=== PATIENT | female | born 1985 ===

== ENCOUNTER 2021-09-01 12:21 | Outpatient (CLI) | payer OTHER | END 2021-09-01 12:33 | disposition home or self-care (01) | LOC: SONOGRAMA 12:21 | PROVIDERS: ATTEND Obstetrics & Gynecology | DX: R18.0 Malignant ascites (principal) ==

== ENCOUNTER 2021-12-05 10:20 | Outpatient (CLI) | payer OTHER | END 2021-12-05 10:38 | disposition home or self-care (01) | LOC: RX STUDY 10:20 | PROVIDERS: ATTEND Obstetrics & Gynecology | DX: R19.00 Intra-abdominal and pelvic swelling, mass and lump, unspecified site (principal) ==